=== PATIENT | female | born 1995 | race Caucasian/White ===

== ENCOUNTER 2024-08-14 10:50 | Inpatient (IN) ==
[2024-08-14] MEDS ORDERED: LIDOCAINE 1% LOCAL 20 ML VIAL INFIL PRN (12:03)
[2024-08-14] MEDS ORDERED: CALCIUM CARBONATE 500 MG CHEWABLE TAB PO PRN (12:03)
[2024-08-14] MEDS ORDERED: OXYTOCIN 30 UNITS/NSS 30 UNITS/500 ML BAG IV PRN ×3 (12:03→18:12)
--- NOTE | 2024-08-14 12:10 | History & Physical Report ---
Date of Service August 14, 2024 Assessment & Plan (1) Normal labor: Plan admit, iv, labs. fhts categ 1. will see if arom develops ctx pattern. if not pt accepting of pitocin. History of Present Illness Chief Complaint: labor Primary Care Provider: ROSEANN PCP 29yo at 39+wks ega presents to with cc of regular ctx. Patient called office and came to LD with possible labor with exam about 4cm. On arrival here about 6cm. PNC uncomplicated. PNL rh pos, ri, gbs neg. OBH: x 1 GYNH: nl paps, no stds. Allergies Allergy/AdvReac Type Severity Reaction Status Date / Time No Known Allergies Allergy Verified 08/12/24 09:51 Home Medications Medication Instructions Recorded Confirmed Type vit no.95-ferrous 1 tab PO DAILY 08/14/24 08/14/24 History fumarate 28 mg-folic acid 800 mcg tablet () Patient History Medical History Varicella vaccination Surgical History No history of previous surgery Family History Mother Hypertension Denies family history of Ovarian cancer Breast cancer Colorectal cancer Social History Smoking Status: Never smoker Do You Dip or Chew Tobacco: No; marital status: marital status details: Jaskaran Nazario (32) [phone] Current Living Situation: Spouse and Family Current Living Situation Comment: lives with spouse, son, dog current occupational status: unemployed current occupation: homemaker Review of Systems as per Subjective / HPI Physical Exam Constitutional: WD/WN, vitals as above Respiratory: normal respiratory effort, lungs clear to auscultation Cardiovascular: Rate/Rhythm: regular rate and regular rhythm Gastrointestinal (Abdomen): soft gravid nt efew 8-9# Musculoskeletal: no edema nontender calves Neurologic: grossly normal Psychiatric: A+Ox3, euthymic affect Genitourinary: Manual OB Exam: + cervical dilation 6 cm, + cervical effacement 50%, + station (post soft) -2 and + amniotic fluid (arom) clear OB Exam Monitor Tracing: + external FHT monitor used, + external uterine monitor used (no ctx), + category I and + normal FHT variability Results & Data Vital Signs (Past 12 Hours) Vital Signs Pulse BP 08/14/24 11:42 85 105/74 Coding Level of Care Code None Diagnoses Normal labor O80; Z37.9
[2024-08-14 12:46] LABS: Hematocrit (blood only) 36.8 % (37.0-47.0); Hemoglobin 12.4 g/dl (12.0-16.0); Mean Corpuscular Hemoglobin 29.8 pg (25.0-34.0); Mean Corpuscular Hgb Conc 33.7 g/dL (32.0-36.0); Mean Corpuscular Volume 88.5 fL (80.0-100.0); Platelet Count 221 K/uL (130-400); RDW Coefficient of Variation 14.5 % (11.5-14.5); RDW Standard Deviation 46.2 fL (36.4-46.3); Red Blood Count 4.16 M/uL (4.20-5.40)
[2024-08-14] MEDS: LACTATED RINGER'S 1,000 ML IV PRN (14:43)
[2024-08-14] MEDS ORDERED: fentaNYL citrate PF 100 MCG/2 ML VIAL EPI STA (15:08)
[2024-08-14] MEDS ORDERED: ePHEDrine sulfate 50 MG/ML AMP IV PRN (15:08)
[2024-08-14] MEDS ORDERED: LIDOCAINE 2% MPF LOCAL 5 ML VIAL EPI PRN (15:08)
[2024-08-14] MEDS ORDERED: SODIUM CHLORIDE 0.9% PF INJ 10 ML VIAL EPI STA (15:08)
[2024-08-14] MEDS ORDERED: SODIUM CHLORIDE 0.9% PF INJ 10 ML VIAL EPI PRN (15:08)
[2024-08-14] MEDS ORDERED: ROPIVACAINE 0.5% PF 5 MG/ML 20 ML VIAL EPI PRN (15:08)
[2024-08-14] MEDS ORDERED: NALOXONE HCL 0.4 MG/1 ML VIAL/CARP IV PRN (15:08)
[2024-08-14] MEDS ORDERED: fentANYL 2 MCG/ML BUPIVacaine 0.125%-NSS 100ML BAG EPI PRN (15:08)
[2024-08-14] MEDS ORDERED: NALBUPHINE HCL INJ 10 MG/ML AMP IV PRN (15:08)
[2024-08-14] MEDS ORDERED: NALOXONE HCL 1 MG in SODIUM CHLORIDE 0.9% 1,000 ML IV PRN (15:08)
[2024-08-14] MEDS ORDERED: LIDOCAINE 2%/EPINEPHRINE 1:200,000 20 ML PF EPI STA (15:08)
[2024-08-14] MEDS ORDERED: diphenhydrAMINE 50 MG/ML VIAL IV PRN (15:08)
[2024-08-14] MEDS ORDERED: BUPIVACAINE 0.25% PF 30 ML VIAL EPI STA (15:08)
[2024-08-14] MEDS ORDERED: BUPIVACAINE 0.25% PF 30 ML VIAL EPI PRN (15:08)
[2024-08-14] MEDS ORDERED: ONDANSETRON INJ 2 MG/ML 2 ML VIAL IV PRN (15:08)
[2024-08-14] MEDS ORDERED: fentaNYL citrate PF 100 MCG/2 ML VIAL EPI PRN (15:08)
--- NOTE | 2024-08-14 15:08 | Anesthesiology Consultation ---
Date of Service August 14, 2024 Assessment & Plan Chart Review Chart Review: Patient NOT seen in Pre Admission Testing and Acceptable Risk for Labor Epidural Consults Requested none ASA ASA2 Proposed Anesthesia Anesthesia Type: Labor Epidural Risk / Benefits Reviewed With: PT / POA / Parent / Guardian, Accepts Plan and Informed Consent Obtained History Height/Weight Height: 5 ft 10 in Weight: 95.254 kg Allergies Allergy/AdvReac Type Severity Reaction Status Date / Time No Known Allergies Allergy Verified 08/12/24 09:51 Medications Home Medications Medication Instructions Recorded Confirmed Last Taken vit no.95-ferrous 1 tab PO DAILY 08/14/24 08/14/24 08/14/24 fumarate 28 mg-folic acid 800 mcg 0800 tablet () Active Medications Generic Name Dose Route Start Last Admin Trade Name Freq PRN Reason Stop Dose Admin Lactated Ringer's 1,000 mls @ 125 mls/hr 08/14/24 12:03 08/14/24 14:43 Lr IV 08/15/24 12:02 999 mls/hr .Q8H PRN Administration L&D Protocol Protocol Past Medical History Medical History (Updated 08/14/24 @ 12:35 by Liana Franklin RN) No known health problems Varicella vaccination Exercise / Class Metabolic Activity II 4-5 Yardwork/Stairs/Walk up hill Past Family History Family History Mother Hypertension Denies family history of Ovarian cancer Breast cancer Colorectal cancer Past Surgical History Surgical History No history of previous surgery Past Anesthesia History No Hx of Anesthesia Complications and No Family Hx of Anesthesia Complications History of PONV No Hx of PONV and No Hx of Motion Sickness Social History Smoking Status: Never smoker Do You Dip or Chew Tobacco: No Hx Alcohol Use: No Hx Substance Use: No Physical Exam Vital Signs Last Vital Signs Temp 36.9 C 08/14/24 11:42 Pulse 76 08/14/24 14:53 Resp 18 08/14/24 11:42 BP 118/74 08/14/24 14:53 ENMT Mouth: no dentition abnormality Thyromental Distance: > or= 3.5 Finger Breadths Mallampati Class: II Neck normal visual inspection Respiratory normal respiratory effort Auscultation: lungs clear to auscultation bilaterally Cardiovascular Rate/Rhythm: regular rate and regular rhythm Psychiatric Orientation: alert Testing Laboratory Results 08/14/24 12:28
[2024-08-14] MEDS: fentANYL 2 MCG/ML BUPIVacaine 0.125%-NSS 100ML BAG ONE (15:23)
[2024-08-14] MEDS: SODIUM CHLORIDE 0.9% PF INJ 10 ML VIAL ONE (15:41)
[2024-08-14] MEDS: BUPIVACAINE 0.25% PF 30 ML VIAL ONE (15:41)
[2024-08-14] MEDS: LIDOCAINE 2%/EPINEPHRINE 1:200,000 20 ML PF ONE (15:41)
--- NOTE | 2024-08-14 15:46 | Labor Progress Brief Note ---
Date of Service August 14, 2024 Subjective comfortable with epidural Assessment & Plan (1) Normal labor: Plan good cx change. fhts categ 1. anticip 2nd stage soon. Admission and Anticipated Discharge Date Admission Date: August 14, 2024 Physical Exam Constitutional: WD/WN, vitals as above Genitourinary: Manual OB Exam: + cervical dilation 8 cm, + cervical effacement 100% and + station + 1 OB Exam Monitor Tracing: + external FHT monitor used, + external uterine monitor used (q2), + category I and + normal FHT variability Results & Data Vital Signs (Past 12 Hours) Vital Signs Temp Pulse Resp BP Pulse Ox 08/14/24 15:41 98 08/14/24 15:41 68 08/14/24 15:41 115/70 08/14/24 15:39 74 08/14/24 15:39 110/64 08/14/24 15:37 76 08/14/24 15:37 112/64 08/14/24 15:36 99 08/14/24 15:36 88 08/14/24 15:35 70 08/14/24 15:35 116/66 08/14/24 15:33 78 08/14/24 15:33 121/66 08/14/24 15:31 96 08/14/24 15:31 87 08/14/24 15:31 115/66 08/14/24 15:29 93 H 08/14/24 15:29 120/67 08/14/24 15:27 75 08/14/24 15:27 125/66 08/14/24 15:26 99 08/14/24 15:26 77 08/14/24 15:25 84 08/14/24 15:25 126/67 08/14/24 15:23 75 08/14/24 15:23 129/70 08/14/24 15:22 85 08/14/24 15:22 131/67 08/14/24 15:21 99 08/14/24 15:21 88 08/14/24 15:16 99 08/14/24 15:16 76 08/14/24 15:11 99 08/14/24 15:11 87 08/14/24 14:53 76 08/14/24 14:53 118/74 08/14/24 11:42 98.4 F 85 18 105/74 Coding Level of Care Code None Diagnoses Normal labor O80; Z37.9
[2024-08-14 17:52] VITALS: O2SAT 100
--- NOTE | 2024-08-14 18:11 | Delivery Summary ---
Vaginal Delivery Summary Date of Service August 14, 2024 Vaginal Delivery Summary and 2nd Degree LAC The patient dilated to complete and pushed to deliver a viable male infant Apgars 8 and 9 via over 2nd degree perineal laceration. Mouth and nose bulb suctioned at perineum. Shoulders and body delivered with ease. was vigorous and crying at . Cord clamped at 30 seconds of life and to maternal abdomen where the cord was then doubly clamped and cut. Placenta delivered spontaneously and intact, three-vessel cord. Hemostasis achieved with dilute pitocin and uterine massage. Laceration repaired with 3-0 vicryl in layers in routine fashion. Cervix and sulci intact. QBL 533 cc. Mother and baby stable in recovery. [facility] Vaginal Delivery Charge Delivery Type Details: and 2nd Degree LAC
[2024-08-14] MEDS ORDERED: HYDROCORTISONE ACETATE 25 MG SUPP PR PRN (18:12)
[2024-08-14] MEDS ORDERED: ACETAMINOPHEN 325 MG TAB PO PRN (18:12)
[2024-08-14] MEDS ORDERED: oxyCODONE/ACETAMINOPHEN 5mg/325mg TAB PO PRN (18:12)
[2024-08-14] MEDS ORDERED: MEASLES, MUMPS & RUBELLA VIRUS VACCINE (MMR) 0.5ML VIAL SQ ONE (18:13)
--- NOTE | 2024-08-14 19:02 | Anesthesia Procedure Note ---
Date of Service August 14, 2024 Anesthesia Post Epidural Note Vital Signs Vital Signs: Temp Pulse Resp BP Pulse Ox 36.8 C 93 H 18 119/71 100 08/14/24 15:28 08/14/24 18:55 08/14/24 18:08 08/14/24 18:55 08/14/24 17:51 Pain Intensity Lower Medial Abdomen: Pain Intensity: 0 Notes Mental Status: alert / awake / arousable Nausea / Vomiting: adequately controlled Pain: adequately controlled Airway Patency, RR, SpO2: stable & adequate BP & HR: stable & adequate Hydration State: stable & adequate Neuraxial Anesthesia: was administered and sensory block is resolving Anesthetic Complications: no major complications apparent and Pt Satisfied with anesthetic care Epidural: Removed without complications and With tip intact
[2024-08-14] MEDS: fentaNYL citrate PF 100 MCG/2 ML VIAL ONE (19:23)
[2024-08-14] MEDS: DIPHTHER/TETAN/PERTUS Vaccine (Tdap, Adol/Adult) 0.5mL IM ONE (19:23)
[2024-08-14] MEDS: ePHEDrine sulfate 50 MG/ML AMP ONE (19:23)
[2024-08-14] MEDS: BENZOCAINE 20% SPRY 85 APPLN/85 GM CAN EXT PRN (20:13)
[2024-08-14] MEDS: IBUPROFEN 600 MG TAB PO PRN (23:44)
[2024-08-15] MEDS: DOCUSATE SODIUM 100 MG CAP PO SCH (00:09)
[2024-08-15 06:35] LABS: Hematocrit (blood only) 34.6 % (37.0-47.0); Hemoglobin 11.7 g/dl (12.0-16.0)
--- NOTE | 2024-08-15 07:04 | Obstetrical Progress Note ---
Date of Service <Ruth Ann Sparrow MD - Last Filed: 08/15/24 07:19> August 15, 2024 Assessment & Plan <Ruth Ann Sparrow MD - Last Filed: 08/15/24 07:19> (1) care and examination: Plan PPD#1 s/p at 39 6/7 wga: Stable. Rh+, gbs , rubella equiv, vitals & H/H wnl Continue routine care, ambulation, diet as tolerated Possible DC later today <Shantell Montenegro MD, FACOG - Last Filed: 08/15/24 07:26> (1) care and examination: Subjective <Ruth Ann Sparrow MD - Last Filed: 08/15/24 07:19> Patient is a 29yo who is PPD#1 following at 39 weeks. Mild abd pain/cramping, well managed on analgesics Voiding w/o issue Tolerating meals Ambulating normally Having appropriate, diminishing lochia Planning to breastfeed. Constitutional: no fever, no chills or no sweats Respiratory: no dyspnea Cardiovascular: no chest pain, no palpitations or no calf pain Breast: no breast pain Gastrointestinal: no nausea or no vomiting Genitourinary (female): no dysuria Neurologic: no headache(s) no changes in vision, no headaches Physical Exam <Ruth Ann Sparrow MD - Last Filed: 08/15/24 07:19> General: Alert, oriented. No acute distress. Cardiac: Regular rate and rhythm, no murmurs, rubs, or gallops. Respiratory: Clear to auscultation bilaterally. No increased work of breathing. Symmetrical chest rise. No respiratory distress. Abdomen: Soft, nontender, nondistended. Bowel sounds present. Uterus: Uterine fundus firm, nontender, palpable 1 cm below the umbilicus. Lower extremities: No lower extremity edema or swelling. No deep calf pain. Results & Data <Ruth Ann Sparrow MD - Last Filed: 08/15/24 07:19> Vital Signs (Past 12 Hours) Vital Signs Temp Pulse Pulse Resp BP BP O2 Del Method 08/15/24 03:25 36.4 C L 70 16 107/69 Room Air 08/14/24 23:30 37.1 C 69 14 108/69 Room Air 08/14/24 20:30 37.3 C 85 16 113/70 Room Air 08/14/24 20:10 18 L 08/14/24 20:10 100 H 08/14/24 20:10 110/55 L 08/14/24 19:55 90 08/14/24 19:55 118/57 L 08/14/24 19:40 18 08/14/24 19:40 96 H 08/14/24 19:40 114/59 L 08/14/24 19:25 94 H 08/14/24 19:25 123/64 08/14/24 19:10 18 08/14/24 19:10 92 H 08/14/24 19:10 120/70 Laboratory Results 08/15/24 06:04 Supervising Physician <Shantell Montenegro MD, FACOG - Last Filed: 08/15/24 07:26> Co-Signing Physician Notes Resident Physician Supervision Note: I was present with Dr. Sparrow during the history and exam. I discussed the case with the resident and agree with the findings and plan as documented in the note. Any exceptions or clarifications are listed here: pt doing well, eating, voiding, ambulating, no bleeding issues. abd soft ff 2 down nt, ext nt calves. ppd #1 s/p . ready for dc later today, instructions reviewed. f/u 6 wk pp. rec mmr and ordered. rh pos, . Documented By: Shantell Montenegro MD, FACOG Resident Activity Tracking <Shantell Montenegro MD, FACOG - Last Filed: 08/15/24 07:26> Resident Involvement: Resident Care Provided Care Provided: Adult [facility]
[2024-08-15] MEDS: PRENATAL VITAMIN 1 TAB PO SCH (08:23)
[2024-08-15 15:27] VITALS: BP 101/69; PULSE 81; RESP 19; TEMP 98.2
[2024-08-15] MEDS ORDERED: bisacodyL 5 MG TABEC PO SCH (20:00)
== END 2024-08-15 18:25 | disposition home or self-care (01) | DRG 807 ==
LOC: OPB 11:23 → 4S1 11:33 → 4E2 20:15